=== PATIENT | female | born 1980 | race Caucasian/White ===

== ENCOUNTER 2019-04-15 17:36 | Emergency (ER) | payer MEDICAID ==
[~2019-04-15] VITALS: Ht 160 cm; Wt 75.8 kg
[~2019-04-15 17:36] MED LIST: PRENAT PO
[2019-04-15 17:40] VITALS: BP 143/78; PULSE 102; RESP 18; Ht 160 cm; Wt 75.8 kg
--- NOTE | 2019-04-15 18:16 | ERD ---
ER Documentation Chief Complaint Chief Complaint SORE THROAT X 1 DAY HPI 39-year-old female, previously healthy, presents to the emergency department, complaining of 1 day with sore throat. The patient also reports headache, subjective fever and general malaise. She denies cough, runny nose, no abdominal pain, no neck stiffness, no nausea or vomiting. No medications taken at this time. ROS All systems reviewed and are negative except as per history of present illness. Medications Home Meds Reported Medications Multivit/Min/Fol Ac/Iron/Pren* ( S*) 1 Tab Tab, 1 TAB PO, TAB 06/09/14 Allergies Allergies: Coded Allergies: No Known Drug Allergies (Verified Allergy, Mild, 03/16/11) PMhx/Soc History of Surgery: No Anesthesia Reaction: No Hx Neurological Disorder: No Hx Respiratory Disorders: No Hx Cardiac Disorders: No Hx Psychiatric Problems: No Hx Miscellaneous Medical Probl: No Hx Alcohol Use: No Hx Substance Use: No Hx Tobacco Use: No FmHx Family History: No diabetes, No coronary disease Physical Exam Vitals Vital Signs Date Temp Pulse Resp B/P (MAP) Pulse Ox O2 O2 Flow FiO2 Time Delivery Rate 04/15/19 98.7 102 18 143/78 98 17:40 (99) Physical Exam Patient is in moderate distress due to fever, vital signs showed fever. EYES: PERRLA, EOMI, injected sclerae EARS: Canals clear, erythematous tympanic membranes THROAT: Erythematous oropharynx with bilateral exudates NECK: Supple, + tender cervical lymphadenopathy. Full ROM without pain or tenderness. HEART: RRR, no rubs, murmurs, clicks or gallops. LUNGS: Bilateral rhonchi to auscultation. ABDOMEN: Soft, non-tender without masses or hepatosplenomegaly. EXTREMITIES: No edema bilaterally. BACK: Full ROM, no deformity, normal back exam NEURO: Cranial nerves grossly intact, no motor or sensory deficit Procedures/MDM Differential diagnosis include but not limited to: Tonsillar/pharyngeal infection bacterial/viral/fungal, parotitis, allergies, GERD. Less likely peritonsillar abscess, retropharyngeal abscess. No signs of upper respiratory obstruction Physical examination and clinical presentation consistent most likely with acute suppurative tonsillitis. Centor criteria 4/5. During the ED course the patient remained stable. Clinical impression discussed with patient who agrees with management. The patient is stable to be treated outpatient and will be discharged home with a Rx for antibiotic and ibuprofen. Some side effects of prescribed medications (headache, rash, nausea, vomiting, diarrhea, drowsiness, habituation, bleeding, hypertension, interactions with other medications) were reviewed. The patient was instructed to follow up with the primary care provider in the next 48h. If symptoms persist, worsen or new symptoms develop, then patient should return to the ED immediately. Disclaimer: Inadvertent spelling and grammatical errors are likely due to EHR/dictation software use and do not reflect on the overall quality of patient care. Also, please note that the electronic time recorded on this note does not necessarily reflect the actual time of the patient encounter. Departure Diagnosis: Primary Impression: Acute suppurative tonsillitis Condition: Stable Additional Instructions: Muchas penny por [facility] para españa servicio. Esperamos que en españa visita a la andrews de emergencia españa problema medico haya sido solucionado y que se sienta mucho mejor. Para estar seguros que españa mejoria sigue en proceso, le pedimos el favor de hacer kacey gal de seguimiento medico con españa doctor primario en los proximos 2-4 cao. Lleve con usted estos documentos y las medicinas recetadas. Si bryon sintomas empeoran, NO SE ESPERE, por favor regrese a andrews de emergencia INMEDIATAMENTE. En shante que usted no tenga un mdico de atencin primaria: Llame al mdico o clnica comunitaria de referencia que aparece abajo rufino las horas de consultorio para hacer kacey gal para que le vean. CLINICAS: [facility] [phone] [id number] [facility] [phone] [facility] [phone] [facility] [phone] [id number] [facility] [phone] [facility]. [phone] PRESTON BARBOZA MD Apr 15, 2019 18:16
[2019-04-15] MEDS ORDERED: AMOX500C2 PO (18:19)
[2019-04-15] MEDS ORDERED: AZIT250T PO (18:19)
[2019-04-15] MEDS ORDERED: IBUP-1542 PO (18:19)
== END 2019-04-16 18:20 | disposition home or self-care (01) ==
LOC: E/R 17:36
DX: J03.90 Acute tonsillitis, unspecified (principal)
CPT/HCPCS: 99283